=== PATIENT | male | born 1990 | race African-American/Black ===

== ENCOUNTER 2020-12-11 14:26 | Inpatient (IN) | payer MEDICAID ==
[~2020-12-11] VITALS: Ht 188 cm; Wt 113.4 kg
[2020-12-11] MEDS ORDERED: SODIUM CHLORIDE 0.9% 1000ML 1,000 ML IV SCH (15:00)
[2020-12-11] MEDS ORDERED: CEFTRIAXONE 1 GM VIAL IM ONE (15:00)
[2020-12-11] MEDS ORDERED: KETOROLAC TROMETHAMINE 30 MG/ML VIAL IV STA (15:01)
[2020-12-11] MEDS ORDERED: MORPHINE SULFATE INJ 4 MG/ML INJ 1ML IV STA (15:01)
[2020-12-11] MEDS ORDERED: SODIUM CHLORIDE 0.9% 50ML 50 ML ONE (15:17)
[2020-12-11] MEDS ORDERED: IOPAMIDOL 370 MG/ML 200 ML INFUS..BTL INJ ONE (15:17)
[2020-12-11 15:23] LABS: BASOPHILS % 0.2 % (0.0-1.0); HEMATOCRIT 46.9 % (38.2-49.6); HEMOGLOBIN 15.3 g/dL (14.0-18.0); LYMPHOCYTES # (AUTO) 1.7 (1.0-3.2); MEAN CORPUSCULAR HEMOGLOBIN 26.8 pg (28-32); MEAN CORPUSCULAR HGB CONC 32.6 g/dL (31-35); MEAN CORPUSCULAR VOLUME 82.3 fL (81-99); MONOCYTES # (AUTO) 2.1 (0.2-0.8); MONOCYTES % 14.7 % (4.4-11.3); NEUTROPHILS # (AUTO) 10.5 (2.1-6.9); NEUTROPHILS % 72.4 % (38.7-80.0); PLATELET COUNT 266 x10e3/uL (140-360); RED CELL DISTRIBUTION WIDTH 13.7 % (11.7-14.4)
[2020-12-11] MEDS ORDERED: Vancomycin IV 1 GM in SODIUM CHLORIDE 0.9% 250ML 250 ML IV ONE (15:30)
[2020-12-11 15:46] LABS: ALBUMIN 3.3 g/dL (3.5-5.0); ALBUMIN/GLOBULIN RATIO 0.7 (0.8-2.0); ANION GAP 18.5 mmol/L (8-16); CALCIUM 9.2 mg/dL (8.4-10.2); CREATININE, SERUM 1.08 mg/dL (0.72-1.25); POTASSIUM 3.5 mmol/L (3.5-5.1)
[2020-12-11] MEDS: SODIUM CHLORIDE 0.9% 1000ML 1,000 ML IV SCH (17:37)
[2020-12-11 18:23] VITALS: BP 107/75
[2020-12-11 20:00] VITALS: BP 152/99
[2020-12-11] MEDS: MORPHINE SULFATE INJ 4 MG/ML INJ 1ML IV PRN (20:26)
[2020-12-11] MEDS: ONDANSETRON HCL INJ 2MG/ML 2ML 2 MG/ML VIAL IV PRN (20:26)
[2020-12-11] MEDS: ACETAMINOPHEN 325 MG TAB PO PRN ×2 (20:35→21:10)
[2020-12-11] MEDS: CEFEPIME 1 GM in SODIUM CHLORIDE 0.9% 50ML 50 ML IV SCH (21:19)
[2020-12-12] VITALS (7 sets, daily range): BP systolic 113–126; BP diastolic 69–84
[2020-12-12] MEDS ORDERED: LANTUS (00:12)
[2020-12-12] MEDS: ONDANSETRON HCL INJ 2MG/ML 2ML 2 MG/ML VIAL IV PRN ×4 (00:30→21:45)
[2020-12-12] MEDS: MORPHINE SULFATE INJ 4 MG/ML INJ 1ML IV PRN ×4 (00:30→21:45)
[2020-12-12] MEDS ORDERED: LIDOCAINE 4% PATCH TP PRN (01:15)
[2020-12-12] MEDS ORDERED: DIPHENHYDRAMINE HCL 25 MG CAP PO PRN (01:15)
[2020-12-12] MEDS ORDERED: SIMETHICONE 80 MG CHEW PO PRN (01:15)
[2020-12-12] MEDS ORDERED: ALBUTEROL/IPRATROPIUM 3 ML NEB NEB PRN (01:15)
[2020-12-12] MEDS ORDERED: MELATONIN 5 MG TABLET PO PRN (01:15)
[2020-12-12] MEDS ORDERED: BENZONATATE 100 MG CAP PO PRN (01:15)
[2020-12-12] MEDS ORDERED: DOCUSATE SODIUM 100 MG CAP PO PRN (01:15)
[2020-12-12] MEDS ORDERED: POTASSIUM CHLORIDE 20 MEQ TAB CR PO PRN (01:15)
[2020-12-12] MEDS ORDERED: HYDRALAZINE HCL 20 MG/ML VIAL IV PRN (01:15)
[2020-12-12] MEDS ORDERED: DEXTROSE 50% SYRINGE 50 ML IV PRN ×2 (01:15)
[2020-12-12] MEDS: SODIUM CHLORIDE 0.9% 1000ML 1,000 ML IV SCH ×3 (02:45→18:18)
[2020-12-12] MEDS: Vancomycin IV 1 GM in SODIUM CHLORIDE 0.9% 250ML 250 ML IV SCH ×2 (03:28→16:00)
[2020-12-12] MEDS: ACETAMINOPHEN 325 MG TAB PO PRN (04:43)
[2020-12-12] MEDS: KETOROLAC TROMETHAMINE 30 MG/ML VIAL IV SCH ×3 (04:49→18:25)
[2020-12-12] MEDS: CEFEPIME 1 GM in SODIUM CHLORIDE 0.9% 50ML 50 ML IV SCH (06:01)
[2020-12-12 06:46] LABS: BASOPHILS % 0.3 % (0.0-1.0); EOSINOPHILS % 0.3 % (0.0-6.0); HEMATOCRIT 41.6 % (38.2-49.6); HEMOGLOBIN 13.1 g/dL (14.0-18.0); LYMPHOCYTES # (AUTO) 1.6 (1.0-3.2); LYMPHOCYTES % 11.7 % (18.0-39.1); MEAN CORPUSCULAR HEMOGLOBIN 26.6 pg (28-32); MEAN CORPUSCULAR HGB CONC 31.5 g/dL (31-35); MEAN CORPUSCULAR VOLUME 84.6 fL (81-99); MONOCYTES # (AUTO) 2.2 (0.2-0.8); MONOCYTES % 15.6 % (4.4-11.3); NEUTROPHILS # (AUTO) 9.8 (2.1-6.9); NEUTROPHILS % 71.2 % (38.7-80.0); PLATELET COUNT 237 x10e3/uL (140-360); RED BLOOD COUNT 4.92 x10e6/uL (4.3-5.7)
[2020-12-12 07:16] LABS: ANION GAP 14.6 mmol/L (8-16); CALCIUM 7.8 mg/dL (8.4-10.2); CREATININE, SERUM 1.03 mg/dL (0.72-1.25); POTASSIUM 3.6 mmol/L (3.5-5.1)
[2020-12-12] MEDS: PANTOPRAZOLE SOD 40 MG TABEC PO SCH (08:28)
[2020-12-12] MEDS ORDERED: SEVOFLURANE INHAL SOLN 250 ML PEN BTL ONE (12:50)
[2020-12-12] MEDS ORDERED: POVIDONE IODINE 0.05% 0.05 % ML PO ONE (12:50)
[2020-12-12] MEDS ORDERED: PROPOFOL IV EMULSION 10 MG/ML 20 ML VIAL ONE (12:50)
[2020-12-12] MEDS ORDERED: DEXAMETHASONE SOD PHOS INJ 4 MG/ML VIAL ONE (12:50)
[2020-12-12] MEDS ORDERED: ONDANSETRON HCL INJ 2MG/ML 2ML 2 MG/ML VIAL ONE (12:50)
[2020-12-12 14:55] LABS: FREE T4 (FREE THYROXINE) 0.9 ng/dL (0.8-1.8); THYROID STIMULATING HORMONE 1.299 uIU/mL (0.350-4.940)
[2020-12-12] MEDS ORDERED: CEFTRIAXONE 2 GM in SODIUM CHLORIDE 0.9% 100 ML IV SCH (15:00)
[2020-12-12] MEDS: CEFTRIAXONE 2 GM in SODIUM CHLORIDE 0.9% 100 ML IV SCH (15:47)
[2020-12-12] MEDS: INSULIN LISPRO 100 UNIT/1 ML 3ML VIAL SQ SCH ×3 (16:30→20:55)
[2020-12-12] MEDS: ENOXAPARIN SOD INJ 40 MG/0.4 ML SYR SC SCH (17:00)
[2020-12-12] MEDS: CLINDAMYCIN PHOS 900MG/ 50ML 50 ML IV SCH (18:00)
[2020-12-12] MEDS ORDERED: BUPIVACAINE HCL 0.5% INJ 30 ML VIAL INJ ONE (19:50)
[2020-12-12] MEDS ORDERED: FENTANYL CITRATE/PF 100MCG/2 ML INJ ONE (20:18)
[2020-12-12] MEDS ORDERED: INSULIN GLARGINE 100 UNITS/ML VIAL SQ SCH (21:00)
[2020-12-13] VITALS (7 sets, daily range): BP systolic 114–126; BP diastolic 77–91
[2020-12-13] MEDS: KETOROLAC TROMETHAMINE 30 MG/ML VIAL IV SCH ×3 (00:24→12:17)
[2020-12-13] MEDS: ONDANSETRON HCL INJ 2MG/ML 2ML 2 MG/ML VIAL IV PRN ×2 (01:35→23:05)
[2020-12-13] MEDS: MORPHINE SULFATE INJ 4 MG/ML INJ 1ML IV PRN ×2 (01:35→23:05)
[2020-12-13] MEDS: Vancomycin IV 1 GM in SODIUM CHLORIDE 0.9% 250ML 250 ML IV SCH (04:10)
[2020-12-13] MEDS: SODIUM CHLORIDE 0.9% 1000ML 1,000 ML IV SCH ×2 (04:26→08:30)
[2020-12-13] MEDS: CLINDAMYCIN PHOS 900MG/ 50ML 50 ML IV SCH ×5 (05:24→23:31)
[2020-12-13 05:35] LABS: BASOPHILS % 0.2 % (0.0-1.0); HEMATOCRIT 40.7 % (38.2-49.6); HEMOGLOBIN 13.2 g/dL (14.0-18.0); LYMPHOCYTES # (AUTO) 0.7 (1.0-3.2); LYMPHOCYTES % 6.2 % (18.0-39.1); MEAN CORPUSCULAR HGB CONC 32.4 g/dL (31-35); MEAN CORPUSCULAR VOLUME 83.4 fL (81-99); MONOCYTES # (AUTO) 0.7 (0.2-0.8); MONOCYTES % 6.1 % (4.4-11.3); NEUTROPHILS # (AUTO) 9.6 (2.1-6.9); NEUTROPHILS % 86.7 % (38.7-80.0); PLATELET COUNT 250 x10e3/uL (140-360); RED BLOOD COUNT 4.88 x10e6/uL (4.3-5.7); RED CELL DISTRIBUTION WIDTH 14.1 % (11.7-14.4)
[2020-12-13 05:56] LABS: ANION GAP 13.9 mmol/L (8-16); CREATININE, SERUM 0.89 mg/dL (0.72-1.25); POTASSIUM 4.9 mmol/L (3.5-5.1)
[2020-12-13 06:18] LABS: THYROID STIMULATING HORMONE 0.389 uIU/mL (0.350-4.940)
[2020-12-13 06:33] LABS: HYPOCHROMASIA SLIGHT; LYMPHOCYTES % (MANUAL) 9 % (19-48); MONOCYTES % (MANUAL) 4 % (3.4-9.0); NEUTROPHILS % (MANUAL) 87 % (40-74); PLATELET ESTIMATE ADEQUATE; RBC MORPHOLOGY COMMENT NORMAL
[2020-12-13 06:34] LABS: PLATELET MORPHOLOGY COMMENT NORMAL
[2020-12-13] MEDS: PANTOPRAZOLE SOD 40 MG TABEC PO SCH (08:31)
[2020-12-13] MEDS: INSULIN LISPRO 100 UNIT/1 ML 3ML VIAL SQ SCH ×7 (10:26→20:58)
[2020-12-13] MEDS: CEFTRIAXONE 2 GM in SODIUM CHLORIDE 0.9% 100 ML IV SCH (15:42)
[2020-12-13] MEDS: ENOXAPARIN SOD INJ 40 MG/0.4 ML SYR SC SCH (17:00)
[2020-12-13] MEDS: VANCOMYCIN 300 ML IV SCH (17:38)
[2020-12-13] MEDS ORDERED: INSULIN GLARGINE 100 UNITS/ML VIAL SQ SCH (21:00)
[2020-12-14] VITALS (9 sets, daily range): BP systolic 106–144; BP diastolic 74–92
[2020-12-14 05:27] LABS: BASOPHILS % 0.2 % (0.0-1.0); EOSINOPHILS # (AUTO) 0.1 (0.0-0.4); EOSINOPHILS % 0.8 % (0.0-6.0); HEMOGLOBIN 12.2 g/dL (14.0-18.0); LYMPHOCYTES # (AUTO) 1.8 (1.0-3.2); LYMPHOCYTES % 19.1 % (18.0-39.1); MEAN CORPUSCULAR HEMOGLOBIN 26.7 pg (28-32); MEAN CORPUSCULAR HGB CONC 32.1 g/dL (31-35); MEAN CORPUSCULAR VOLUME 83.2 fL (81-99); MONOCYTES # (AUTO) 0.7 (0.2-0.8); MONOCYTES % 7.7 % (4.4-11.3); NEUTROPHILS # (AUTO) 6.8 (2.1-6.9); NEUTROPHILS % 71.4 % (38.7-80.0); PLATELET COUNT 290 x10e3/uL (140-360); RED BLOOD COUNT 4.57 x10e6/uL (4.3-5.7); RED CELL DISTRIBUTION WIDTH 14.1 % (11.7-14.4)
[2020-12-14] MEDS: VANCOMYCIN 300 ML IV SCH ×2 (05:30→16:55)
[2020-12-14 05:43] LABS: ANION GAP 13.1 mmol/L (8-16); CALCIUM 8.2 mg/dL (8.4-10.2); CREATININE, SERUM 0.83 mg/dL (0.72-1.25); POTASSIUM 4.1 mmol/L (3.5-5.1)
[2020-12-14] MEDS: CLINDAMYCIN PHOS 900MG/ 50ML 50 ML IV SCH ×3 (05:57→20:00)
[2020-12-14] MEDS: PANTOPRAZOLE SOD 40 MG TABEC PO SCH (08:53)
[2020-12-14] MEDS: ONDANSETRON HCL INJ 2MG/ML 2ML 2 MG/ML VIAL IV PRN ×3 (08:53→23:15)
[2020-12-14] MEDS: MORPHINE SULFATE INJ 4 MG/ML INJ 1ML IV PRN ×3 (08:53→23:15)
[2020-12-14] MEDS: INSULIN LISPRO 100 UNIT/1 ML 3ML VIAL SQ SCH ×7 (09:18→21:00)
[2020-12-14] MEDS: CEFTRIAXONE 2 GM in SODIUM CHLORIDE 0.9% 100 ML IV SCH (15:12)
[2020-12-14] MEDS: ENOXAPARIN SOD INJ 40 MG/0.4 ML SYR SC SCH (16:12)
[2020-12-14] MEDS: HYDROCODONE/APAP 5MG-325MG TAB PO PRN (20:45)
[2020-12-14] MEDS ORDERED: INSULIN GLARGINE 100 UNITS/ML VIAL SQ SCH (21:00)
[2020-12-15] VITALS: BP 121/90
[2020-12-15] MEDS: CLINDAMYCIN PHOS 900MG/ 50ML 50 ML IV SCH ×3 (01:07→12:00)
[2020-12-15 04:00] VITALS: BP 115/88
[2020-12-15] MEDS: VANCOMYCIN 300 ML IV SCH (05:52)
[2020-12-15] MEDS: MORPHINE SULFATE INJ 4 MG/ML INJ 1ML IV PRN ×3 (06:15→14:20)
[2020-12-15] MEDS: ONDANSETRON HCL INJ 2MG/ML 2ML 2 MG/ML VIAL IV PRN ×3 (06:15→14:20)
[2020-12-15] MEDS: PANTOPRAZOLE SOD 40 MG TABEC PO SCH (07:30)
[2020-12-15] MEDS: INSULIN LISPRO 100 UNIT/1 ML 3ML VIAL SQ SCH ×4 (07:30→11:30)
[2020-12-15 07:56] VITALS: BP 135/92
[2020-12-15 08:47] VITALS: BP 135/92
[2020-12-15] MEDS: HYDROCODONE/APAP 5MG-325MG TAB PO PRN (09:32)
[2020-12-15 12:19] VITALS: BP 130/89
[2020-12-15] MEDS ORDERED: DOXYCYCLINE HY100 MG PO (13:56)
[2020-12-15] MEDS ORDERED: ACETAMINOPHEN PO (13:58)
[2020-12-15] MEDS ORDERED: CODEINE PO (13:58)
[2020-12-15] MEDS ORDERED: HUMALOG INSULIN SC (14:55)
[2020-12-15] MEDS ORDERED: LANTUS INSULIN SC (14:55)
[2020-12-15] MEDS: CEFTRIAXONE 2 GM in SODIUM CHLORIDE 0.9% 100 ML IV SCH (15:00)
== END 2020-12-15 15:17 | disposition home or self-care (01) | DRG 581 ==
LOC: ER 15:00 → ERHOLD 18:00 → MED/SURG2 18:03
PROVIDERS: ADMIT Internal Medicine; ATTEND Internal Medicine
PROC: 0J9L0ZZ Drainage of Right Upper Leg Subcutaneous Tissue and Fascia, Open Approach (ICD-10-PCS; principal; 2020-12-12 15:00)
DX: L02.416 Cutaneous abscess of left lower limb (principal); B95.62 Methicillin resistant Staphylococcus aureus infection as the cause of diseases classified elsewhere; E11.65 Type 2 diabetes mellitus with hyperglycemia; E66.01 Morbid (severe) obesity due to excess calories; Z68.32 Body mass index [BMI] 32.0-32.9, adult; F17.210 Nicotine dependence, cigarettes, uncomplicated; L02.415 Cutaneous abscess of right lower limb; G89.4 Chronic pain syndrome; K29.70 Gastritis, unspecified, without bleeding; G47.00 Insomnia, unspecified; Z20.822 Contact with and (suspected) exposure to COVID-19
CPT/HCPCS: 36415; 72193; 80048; 80053; 80202; 82948; 83036; 83605; 84439; 84443; 85025; 87040; 87071; 87075; 87186; 87205; 99284; J0692; J0696; J1100; J1650; J1815; J1885; J2270; J2405; J3010; J3370; J7030; J7050; Q9967; U0002

== ENCOUNTER → 2020-12-20 | Emergency (ER) | payer MEDICAID ==
[~2020-12-20] VITALS: Ht 188 cm; Wt 113.4 kg
[~2020-12-20] MED LIST: ACETAMINOPHEN PO; CODEINE PO; DOXYCYCLINE HY100 MG PO; HUMALOG INSULIN SC; HYDROCODON-ACE1 EAC9 PO; KETOROLAC TROMETHAMINE 60 MG/2 ML VIAL ONE; LANTUS; LANTUS INSULIN SC
== END | disposition left against medical advice (07) ==
LOC: ER 16:00
DX: L02.214 Cutaneous abscess of groin (principal)
CPT/HCPCS: J1885

== ENCOUNTER 2020-12-21 03:31 | Emergency (ER) | payer MEDICAID ==
[~2020-12-21] VITALS: Ht 188 cm; Wt 113.4 kg
[~2020-12-21 03:31] MED LIST changes: -HYDROCODON-ACE1 EAC9 PO; -KETOROLAC TROMETHAMINE 60 MG/2 ML VIAL ONE
[2020-12-21] MEDS ORDERED: HYDROCODON-ACE1 EAC9 PO (03:57)
[2020-12-21] MEDS ORDERED: KETOROLAC TROMETHAMINE 60 MG/2 ML VIAL IM ONE (04:00)
== END 2020-12-21 04:19 | disposition home or self-care (01) ==
LOC: ER 03:47
DX: L02.415 Cutaneous abscess of right lower limb (principal); Z98.890 Other specified postprocedural states; E11.9 Type 2 diabetes mellitus without complications; Z79.4 Long term (current) use of insulin
CPT/HCPCS: 99282